=== PATIENT | female | born 1940 | race Caucasian/White ===

== ENCOUNTER → 2017-01-27 | Day surgery (SDC) | payer MEDICARE, OTHER ==
[~2017-01-27] VITALS: Ht 152.4 cm; Wt 59.9 kg
[~2017-01-27] MED LIST: ASPIRIN EC325 MG PO; BYSTOLIC5 MG PO; CALCIUM CARBON600 MG PO; FLEXERIL10 MG PO; GABAPENTIN300 M1 PO; HYZAAR 50-12.51 EACH PO; LIPITOR10 MG PO; MORPHINE IV; NITROGLYCERIN0.4 MG SL; OXYCODONE HCL20 MG PO; OXYCODONE HYDRO PO; OXYCODONE SR 2020 MG PO; PERCOCET 10 MG1 EACH PO; POTASSIUM CHLO20 ME2 PO; PRILOSEC OTC20 MG PO; SYNTHROID 0.0.125 MG PO; VALIUM5 MG PO; VITAMIN D1000 IU PO
[2017-01-27 13:08] VITALS: BP 126/56; BP 131/71
--- NOTE | 2017-01-27 13:28 | Procedure Note ---
Procedure detail Date of procedure: 01/27/17 Anesthesiologist: Paul Doyle Complications: None Pre-procedure diagnosis: Degenerative disease lumbar spine multiple levels. Lumbar postlaminectomy syndrome. Lumbar radiculopathy symptoms. Post-procedure diagnosis: Same. Indications for procedure: This patient's a very pleasant 76-year-old white female we've been treating for quite some time for chronic low back pain secondary to degenerative disc disease lumbar spine levels. Lumbar radiculopathy symptoms. Postlaminectomy syndrome lumbar syndrome. We currently manage patient with intrathecal pain pump. Her pump contains morphine sulfate 15 mg/mL at 3.0 mg per day. She's him some increased pain. She complains of low back pain that radiates into the bilateral hips at times. Typically, with activity. We'll increase her rate 3.5 mg per day. We will discontinue PTM as these are not helping. We also discussed changing her medication hydromorphone if indeed this increase does not help. Procedure detail: Details of procedure is going to the patient. The patient taken to the procedure room and placed in the sitting position. The area over the pump was cleansed using chlorhexidine as a cleansing solution. The pump was accessed with ease using a 22-gauge needle from the refill kit. 9 mL of solution was removed and discarded appropriately. The pump was then filled with 20 mL of morphine sulfate 20 mg/mL. The pump was interrogated and the rate was increased to 3.5 mg per day. Patient tolerated the procedure without difficulty. There were no complications. Objective: Patient's awake alert oriented 3. In no acute distress. Flexion extension lumbar spine somewhat guarded secondary to pain. Deep tendon reflexes upper lower extremities normal. Motor strength upper lower extremities normal. There is no gross sensory deficit. Gait is normal. Positive straight leg raise test at 30 degrees bilaterally. Plan and disposition: Patient was reevaluated 15 minutes post procedure. She is doing very well. She' ll return to see us at her next refill date. I instructed the patient to give us a call if in fact she has any issues between now and then. at [id number]
[2017-01-27 13:30] VITALS: BP 135/67
== END ==
LOC: PM 12:27
DX: M51.16 Intervertebral disc disorders with radiculopathy, lumbar region (principal)

== ENCOUNTER → 2017-04-06 | Outpatient (CLI) | payer MEDICARE, OTHER ==
[2017-04-06 11:03] LABS: HEMOGLOBIN 12.7 g/dL (12.2-16.2); LYMPH # 1.9 K/mm3 (0.7-4.5); LYMPH % 31.1 % (10-50.0)
[2017-04-06 11:38] LABS: BUN 12 mg/dL (7-18); GFR (ESTIMATED) 70 ML/MIN (59-)
== END ==
LOC: LAB 10:10
PROVIDERS: Nurse Practitioner Family
DX: I10 Essential (primary) hypertension (principal); E03.9 Hypothyroidism, unspecified; D12.6 Benign neoplasm of colon, unspecified

== ENCOUNTER → 2017-04-07 | Outpatient (CLI) | payer MEDICARE, OTHER ==
--- NOTE | 2017-04-09 12:29 | RADIOLOGY REPORT PS360 ---
MRI-L-SPINE W/WO, MRI-3D RENDERING/MYELOGRAM HISTORY: Low back pain with inability to walk for long distances LUMBOSACRAL RADICULOPATHY DUE TO DEGENERATIVE JOINT DISEAS ORDERING PHYSICIAN: Laura Henson APRN PATIENT AGE: 76 years COMPARISON: Post mammographic CT scan of 6:15 TECHNIQUE: Standard multiplanar multiecho sequences are performed without and with contrast. 3-D MIP and myelographic images are also rendered and reviewed FINDINGS: There is severe lumbar scoliosis convex left measuring 48 degrees by the Cuadra technique. There is multilevel degenerative disc disease with endplate and facet hypertrophic change. The degenerative disc disease is present from T10 to S1. T12-L1: Degenerative disc disease with mild bulging disc and moderate left foraminal narrowing from disc osteophyte complex. Prominent left marginal osteophytes. L1-L2: Degenerative disc disease with bulging disc along with prominent left marginal osteophyte. L2-L3: Degenerative disc disease with bulging disc with facet hypertrophic change and right lateral recess and foraminal narrowing. Mild left foraminal narrowing. There is 6 mm right lateral translation of L2 on L3. There is 5 mm posterior subluxation of L2 on L3. L3-L4: Severe degenerative disc disease with 7 mm right lateral translation of L3 with severe right-sided foraminal narrowing. Prominent facet hypertrophic changes are present with canal stenosis and severe bilateral lateral recess narrowing and severe bilateral foraminal narrowing L4-L5: Interpedicular screws are present with considerable artifact. 5 mm left lateral translation of L4 and 6 mm left lateral translation of L5. L5-S1: Degenerative disc disease with bulging disc eccentric to the right with mild right foraminal narrowing. Artifact is present from the interpedicular screws at L5. No enhancing lesions are evident. No obvious epidural fibrosis. No significant change compared to the prior myelogram IMPRESSION: 1. Severe lumbar spondylosis with scoliosis and multilevel degenerative disc disease with facet and ligamentum flavum hypertrophy. Please see above for detailed description at each level. Postsurgical changes without evidence of epidural fibrosis. 2. No extruded herniated disc evident.
== END ==
LOC: RAD 02-20 13:00
DX: M47.27 Other spondylosis with radiculopathy, lumbosacral region (principal)
CPT/HCPCS: A9576

== ENCOUNTER → 2017-04-28 | Day surgery (SDC) | payer MEDICARE, OTHER ==
[~2017-04-28] VITALS: Ht 152.4 cm; Wt 61.2 kg
[2017-04-28 13:05] VITALS: BP 141/86
[2017-04-28 13:17] VITALS: BP 141/86
[2017-04-28 13:19] VITALS: BP 131/86
--- NOTE | 2017-04-28 13:41 | Procedure Note ---
Procedure detail Date of procedure: 04/28/17 Anesthesiologist: Paul Doyle Complications: None Pre-procedure diagnosis: Degenerative disc disease lumbar spine multiple levels. Lumbar postlaminectomy syndrome. Lumbar radiculopathy symptoms. Lumbar spondylosis. Post-procedure diagnosis: Same. Indications for procedure: Very pleasant 77-year-old white female the comes our procedure clinic today for intrathecal pain pump refill. Her pump currently contains morphine sulfate 20 mg /mL at a rate of 3.5 mg per day. Patient seems to be doing very well with her current settings. However, she does have an appointment to see Dr. [place]o regarding spine surgery consultation. Patient seems to be having some intense pain at times with activity. She describes her low back pain as constant, dull, aching. She rates the pain 8/10. We discussed in detail change in her intrathecal pain pump medicine. We will wait till after surgery consultation. Objective: Patient's awake alert oriented 3. In acute distress. Flexion extension lumbar spine somewhat guarded secondary to pain. Deep tendon reflexes upper lower extremity is normal. Motor strength upper lower extremities normal. There is no gross sensory deficit. Gait is normal. Procedure detail: Details of procedure were explained to the patient. The patient taken to the procedure room placed in sitting position. The area over the pump was cleansed using chlorhexidine as cleansing solution. The pump was accessed with ease using 20-gauge needle from refill kit. 3.5 mL of solution was withdrawn and discarded appropriately. The pump was then filled with 20 mL of morphine sulfate 20 mg/mL. The pump was interrogated. The rate was continued at 3.5 mg per day. Plan and disposition: Patient was discharged home 15 minutes post procedure. She is doing very well. We'll see her next visit. at 1343
[2017-04-28 14:00] VITALS: BP 156/85
[2017-04-28 17:22] LABS: AMPHETAMINES/METAMPHETAMINES NEGATIVE ng/mL (<1000)
== END ==
LOC: PM 12:29 → LAB 12:29 → PM 13:15
PROVIDERS: Internal Medicine Adolescent Medicine
DX: M51.16 Intervertebral disc disorders with radiculopathy, lumbar region (principal); M96.1 Postlaminectomy syndrome, not elsewhere classified; M47.896 Other spondylosis, lumbar region; Z79.891 Long term (current) use of opiate analgesic